=== PATIENT | female | born 1950 | race Caucasian/White ===

== ENCOUNTER 2016-08-21 13:12 | Inpatient (IN) | payer BC, OTHER ==
[2016-08-21] VITALS (8 sets, daily range): BP systolic 104–131; BP diastolic 57–85; PULSE 90–142; TEMP 36.7–37.5; O2SAT 95–97; Ht 175.3 cm; Wt 73.2 kg
[~2016-08-21] VITALS: Ht 175.3 cm; Wt 73.2 kg
[2016-08-21] MEDS ORDERED: SODIUM CHLORIDE 0.9% 1000ML 1,000 ML IV SCH (13:56)
[2016-08-21] MEDS ORDERED: DILTIAZEM BOLUS / DRIP IV STA (13:56)
[2016-08-21] MEDS ORDERED: NITROGLYCERIN 0.4 MG SL PER TAB CHARGE SL PRN (14:00)
[2016-08-21] MEDS ORDERED: ACETAMINOPHEN 325 MG TAB PO PRN (14:00)
[2016-08-21] MEDS ORDERED: POLYETHYLENE (MIRALAX) 17 GM PACK PO PRN (14:00)
[2016-08-21] MEDS ORDERED: MAGNESIUM HYDROXIDE SUSP 30 ML UDC PO PRN (14:00)
[2016-08-21] MEDS ORDERED: ALUMINUM/MAGNESIUM/SIMETH (MAALOX MAX) 30 ML UDC PO PRN (14:00)
[2016-08-21] MEDS ORDERED: ONDANSETRON INJ 2 MG/ML 2 ML VIAL IV PRN (14:00)
[2016-08-21] MEDS ORDERED: MULT-506 PO (14:01)
[2016-08-21] MEDS ORDERED: CALC600T9 PO (14:01)
[2016-08-21] MEDS ORDERED: OMEG10007 PO (14:01)
[2016-08-21] MEDS ORDERED: EPP3/2 IM (14:01)
[2016-08-21] MEDS ORDERED: AZIT250T PO (14:01)
--- NOTE | 2016-08-21 14:57 | History and Physical ---
History & Physical Date & Time of Service: August 21, 2016 at 14:52 Chief Complaint: Afib With Rvr Primary Care Physician: Smith Lazaro M.D. History of Present Illness Source: patient Ms. Muhammad is a 66 y/o female with PMHx of Pneumonia (states she was being treated for legionella) with Empyema x 30 years ago who is a direct admission from PCPs office for new onset atrial fibrillation with RVR. She presented to the PCP as a follow-up today for worsening cough, chest congestion, and fatigue/ generalized weakness x 1 week. URI symptoms started as a sore throat, which is currently resolved, and nasal congestion. She was able to go about her normal routine, including yoga and water aerobics. She initially had a productive cough that is now largely unproductive. As the week progressed she felt that her chest became more congested. She has had intermittent fevers ranging from 99 -101 over this past week.Associated worsening fatigue, nausea, and poor appetite. She presented to the PCP's office on Wednesday and was started on Zithromax for her URI symptoms. She felt that she did not notice much improvement. Also notes her heart rate was reported as fast but no EKG obtained. She presented again to PCP office as symptoms continued to progress and due to the tachycardia and EKG was obtained that revealed A Fib. She denies palpitations, lightheadedness, SOB, or CP. She cannot recall noting frequent fast heart rates or palpitations in the past. She denies previous cardiac history but thinks she had a heart murmur as a child. She does not have a history of thyroid dysfunction. She does report poor oral intake and intermittent diarrhea. She reports taking a multivitamin and has been supplementing Gatorade to maintain electrolytes. Past Medical/Surgical History Denies a significant medical history Family History Hypertension Social History Smoking Status: Never Smoker Smokeless Tobacco Use: No Alcohol Use: socially Drug Use: none Multi-Drug Resistant Organisms History of MDRO: No Allergies Coded Allergies: Penicillins (Verified Allergy, Mild, Hives, 08/21/16) Home Medications Scheduled Azithromycin (Zithromax), 250 MG PO DAILY Calcium Carbonate-Vitamin D (Calcium + D), 1 PO QD Epinephrine (Epipen 2-Bean), 0.3 IM once Fish Oil ([place]-3), 2 CAP PO BID Multivitamin (Multivitamin), 1 TAB PO DAILY Review of Systems Constitutional: + fatigue, + fever (past week - resolved currently), + weakness (generalized), No chills, No sweats Eyes: No worsening of vision ENT: + nasal symptoms, + sore throat ("scratchy" resolved), No trouble swallowing Respiratory: + cough, + sputum (initially productive now non-productive), No dyspnea on exertion, No shortness of breath Cardiovascular: No chest pain, No palpitations Abdomen: + diarrhea (intermittent), + nausea, No GI bleeding, No pain, No vomiting Musculoskeletal: No calf pain, No swelling Genitourinary - Female: No dysuria Neurologic: No vertigo Hematologic / Lymphatic: No abnormal bleeding/bruising, No clotting problems Integumentary: No rash Physical Exam General Appearance: WD/WN, no apparent distress, + pertinent finding (mild tremor of head) Head: normocephalic, atraumatic Eyes: sclerae normal ENT: hearing grossly normal Neck: supple, no JVD, trachea midline Respiratory/Chest: normal breath sounds, no respiratory distress, no accessory muscle use, + crackles (minimal crackles R base) Cardiovascular: no gallop, no murmur, + tachycardia, + irregularly irregular Abdomen/GI: normal bowel sounds, non tender, soft Back: normal inspection, no CVA tenderness Extremities/Musculoskelatal: no calf tenderness, no pedal edema Neurologic/Psych: no motor/sensory deficits, alert, oriented x 3 Skin: normal color, warm/dry Diagnostics Laboratory Results Results Past 24 Hours Test 08/21/16 13:56 08/21/16 14:46 Range/Units Impression Assessment and Plan Ms. Muhammad is a 66 y/o female with PMHx of Pneumonia (states she was being treated for legionella) with Empyema x 30 years ago who is a direct admission from PCPs office for new onset atrial fibrillation with RVR. New Onset Atrial Fibrillation with RVR: CHADSVASC 2 - Unsure how long she may have been in A Fib...may possibly be approx. 72 hrs? - Cardizem bolus/gtt - initiated 5 mg bolus as BP 120s/80s then gtt with titration - NSS 100 mL/hr - await labs and replete electrolytes as necessary -- Check electrolytes, TSH, serial cardiac enzymes - Therapeutic Lovenox 1 mg/kg - Echo - Consult Cardiology - recommendations appreciated - rate control medications and anticoagulation URI Symptoms: Viral/Bacterial Sinusitis vs Pneumonia: - Imaging (CXR) and labs remain pending - evidence of leukocystosis a R base crackles - Hold Zithromax (took 2 days) - Start Rocephin 1 g IV daily DVT Prophylaxis: Therapeutic Lovenox Code Status: FULL RESUSCITATION Disposition: Pending rate control..possible rhythm conversion -- If plan for NOAC will need co-pay addressed Pt seen/examined and orders , H&P reviewed in conjunction with PA Presented to her MD with URI symptoms and was noted to be tachycardic - subsequently diagnosed with new AF and sent to the hospital as a direct admit. The pt denies CP or significant SOB Her CXR is more consistent with a degree of vascular congestion than with pneumonia or bronchitis although emphysematous changes are also described OE AAO x 3 S1,2 R CTAB NT, ND No CCE P: Treat for AF - rate control with Cardizem, Lovenox, echo - cardio consulted If her resp symptoms do not resolve with treatment of her AF would consider diuresis or treating for pulmonary etiology Level of Care Telemetry Resuscitation Status FULL RESUSCITATION VTE Prophylaxis VTE Risk Assessment Done? Y/N: Yes Risk Level: Moderate Given or contraindicated: Enoxaparin (Lovenox)SQ, T.E.D. Stockings, SCD's
[2016-08-21] MEDS ORDERED: CEFTRIAXONE SOD INJ 1 GM in DEXTROSE 5% ADD-VANTAGE 50ML 50 ML IV SCH (15:00)
[2016-08-21] MEDS ORDERED: DILTIAZEM HCL INJ 125 MG in DEXTROSE 5% 100ML IV PRN (15:00)
[2016-08-21] MEDS ORDERED: DILTIAZEM HCL 5 MG/ML 5 ML VIAL IV SCH (15:00)
[2016-08-21 15:23] LABS: BASO % 0.2 %; BASO ABS # 0.03 K/uL (0-0.2); COMPLETE YES; EOS % 0.7 %; HEMATOCRIT 42.4 % (37-47); IG% 0.3 %; LYMPH % 10.3 %; LYMPH ABS # 1.53 K/uL (1.2-3.4); MEAN CELL VOLUME 87.8 fL (80-100); MEAN CORPUSCULAR HEMOGLOBIN 29.6 pg (25-34); MEAN CORPUSCULAR HGB CONC 33.7 g/dl (32-36); MEAN PLATELET VOLUME 9.5 fL (7.4-10.4); MONO % 8.2 %; NEUT % 80.3 %; PLATELET COUNT 288 K/uL (130-400); RED BLOOD COUNT 4.83 M/uL (4.2-5.4)
[2016-08-21] MEDS ORDERED: PATIENT'S HEIGHT AND/OR WEIGHT NEEDED SCH (15:30)
[2016-08-21 15:37] LABS: INR 1.1 (0.9-1.1); PROTHROMBIN TIME (PATIENT) 11.9 SECONDS (9.0-12.0)
[2016-08-21 15:55] LABS: URINE APPEARANCE CLEAR (CLEAR); URINE BILIRUBIN NEG (NEG); URINE COLOR YELLOW; URINE NITRITE NEG (NEG); URINE PH 8.5 (4.5-7.5); URINE SPECIFIC GRAVITY 1.011 (1.000-1.030); UROBILINOGEN NEG (NEG); ZZUR CULT IF INDIC CLEAN CATCH NO
[2016-08-21 15:56] LABS: CALCIUM 8.8 mg/dl (8.5-10.1); CKMB/CK RATIO 0.4 (0-3.0)
[2016-08-21 15:57] LABS: MANUAL MICROSCOPIC REQUIRED? NO; REVIEW REQ? NO
[2016-08-21 15:59] LABS: BUN/CREATININE RATIO 20.5 (10-20); CREATININE 0.58 mg/dl (0.60-1.20); MAGNESIUM 2.4 mg/dl (1.8-2.4)
[2016-08-21 16:09] LABS: ALB/GLOB RATIO 0.7 (0.9-2); PHOSPHORUS 2.5 mg/dl (2.5-4.9); THYROID STIMULATING HORMONE 1.07 uIu/ml (0.300-4.500)
--- NOTE | 2016-08-21 17:01 | DIAGNOSTIC IMAGING REPORT ---
CHEST 2 VIEWS ROUTINE CLINICAL HISTORY: Atrial Fibrillation cardiac arrhythmia COMPARISON STUDY: No previous studies for comparison. FINDINGS: Mild emphysematous change. Mild interstitial prominence bilaterally. No evidence for cardiac enlargement. Diaphragms smooth. Slight blunting of the lateral costophrenic angles bilaterally. IMPRESSION: Emphysematous change. Pulmonary vascular congestion versus mild congestive failure Electronically signed by: Dagoberto Bajwa M.D. 08/21/2016 4:59 PM Dictated Date/Time: 08/21/2016 4:59 PM
--- NOTE | 2016-08-21 18:09 | CARDIOLOGY CONSULTATION ---
DATE OF CONSULTATION: 08/21/2016 REFERRING PHYSICIAN: Dr. Teddy Rubio. CHIEF COMPLAINT: Atrial fibrillation. HISTORY OF PRESENT ILLNESS: Mrs. Tatum Muhammad is a 66-year-old woman without any cardiac history who has been experiencing constitutional symptoms of fevers, anorexia, weakness and a nonproductive cough. The patient also has an element of nausea, but no significant vomiting. These symptoms have been present for approximately 3 days. She denies significant associated dyspnea. She states that when lying down she has a cough that is nonproductive and seems to improve with sitting upright. She states that her had similar syndrome prior to her. She did track her tachycardia picture at home and recorded 101.5. She proceeded to her primary care physician's office approximately 3 days ago where she was prescribed an antibiotic and asked to follow up today. Today, she had some mild improvement in her symptoms as well as noted to have an elevated heart rate and sent to the Emergency Room for evaluation. There, she was discovered to have atrial fibrillation and a rapid ventricular rate. The patient denies symptoms of chest discomfort. She does not report any history of chest pain or exertional chest discomfort. She is not aware of any palpitations or tachycardia. She denies significant dizziness or lightheadedness. She has not suffered recent syncopal episode. 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 She states she has intermittent high blood pressures but is not currently on treatment for hypertension. PAST SURGICAL HISTORY: Includes the aforementioned right thoracotomy for empyema, tonsillectomy, and left elbow surgery. OUTPATIENT MEDICATIONS: The patient takes only supplements. No prescribed medications. MEDICAL ALLERGIES: INCLUDE PENICILLIN. FAMILY HISTORY: No history of premature coronary disease or atrial fibrillation. SOCIAL HISTORY: The patient is retired from the university. She is a lifelong nonsmoker and denies significant alcohol abuse. REVIEW OF SYSTEMS: A complete 10-system review of systems was performed and the pertinent positives are noted in the history of present illness, the remainder being negative. She states she does have some mild diarrhea. She does not report any swelling in her lower extremities. She does not report any recent rashes. PHYSICAL EXAMINATION: GENERAL: The patient was alert and oriented, mood and affect appeared normal. She answered all questions appropriately. CURRENT VITAL SIGNS: Include blood pressure 125/85 with a pulse of 135. HEENT AND NECK: Her sclerae are anicteric. Her pupils are equal, reactive to light and accommodation. Extraocular movements were intact. Palpation of submandibular region did not reveal any significant lymphadenopathy. The carotids are palpable bilaterally. There are no bruits on auscultation. I did not appreciate any jugular venous distention. Thyroid is not enlarged. LUNGS: Auscultation of both lung farrar reveal crackles in some decreased breath sounds in the right base, but the left appeared clear. There are no expiratory wheezes. She had normal respiratory effort without use of accessory muscles. HEART: Evaluation revealed her to be in a rapid rhythm that was irregular. S1, S2 appear to be normal. I did not appreciate any murmurs on examination. The PMI was not markedly displaced on palpation. Evaluation of lower extremities did not reveal any significant peripheral edema. ABDOMEN: Soft and nontender. EXTREMITIES: Evaluation of both wrists revealed radial pulses that were equal in intensity. There was no evidence of cyanosis or clubbing. LABORATORY AND IMAGING STUDIES: Obtained since admission include white cell count 14.9, hemoglobin of 14, and a platelet count of 288. Sodium is 137, potassium is 4.0. Creatinine was 0.58, BUN was 12. Cardiac troponin was less than detectable limit. TSH was normal at 1.0. The patient had a 12-lead EKG obtained at the time of admission which revealed her to be in atrial flutter with a rapid ventricular response. There were no acute ST or T-wave changes. There was evidence of an incomplete right bundle branch block. Chest x-ray is pending. ASSESSMENT AND PLAN: Atrial flutter with rapid ventricular response: The patient has no cardiac history. She has a remote history of pulmonary infection and a pulmonary process. It is very likely that she has a pulmonary process currently and that her arrhythmia was triggered by her acute illness. She has no symptoms related to the arrhythmia. She is hemodynamically stable. At this point, it would seem reasonable to attempt a rate control strategy with diltiazem infusion as ordered. I suspect that as her clinical condition improves and suspected infection is treated, we may see resolution of the arrhythmia or at least improved rate control. The duration of the arrhythmia is also unknown, but likely associated with acute illness and present for several days. She has been started on systemic anticoagulation and this will need to be continued in the outpatient setting given her CHADS2-VASc score of 2. Oral anticoagulant can be chosen by the patient, NOAC versus warfarin either would be acceptable. We will await results of the echocardiogram in order to determine if there are any structural abnormalities, which makes explain the arrhythmia or need evaluation but her examination is otherwise unremarkable.
[2016-08-21] MEDS: ENOXAPARIN 80 MG/0.8 ML SYR SQ SCH (19:22)
[2016-08-21] MEDS ORDERED: ENOXAPARIN 1 MG/KG SQ SCH (21:00)
[2016-08-21 21:51] LABS: CKMB/CK RATIO 0.4 (0-3.0)
[2016-08-21] MEDS ORDERED: NURSING VERBAL MED ORDER ONE (23:45)
[2016-08-22] VITALS: O2SAT 98
[2016-08-22] MEDS: HYDROCODONE/HOMATROPINE SYRUP 5MG/1.5MG 5ML UDP PO PRN ×2 (00:13→08:43)
[2016-08-22 03:04] LABS: BASO % 0.4 %; BASO ABS # 0.05 K/uL (0-0.2); COMPLETE YES; EOS % 2.7 %; HEMATOCRIT 39.3 % (37-47); IG% 0.2 %; LYMPH % 20.4 %; LYMPH ABS # 2.79 K/uL (1.2-3.4); MEAN CELL VOLUME 88.7 fL (80-100); MEAN CORPUSCULAR HEMOGLOBIN 29.8 pg (25-34); MEAN CORPUSCULAR HGB CONC 33.6 g/dl (32-36); MEAN PLATELET VOLUME 9.2 fL (7.4-10.4); MONO % 9.3 %; PLATELET COUNT 270 K/uL (130-400); RED BLOOD COUNT 4.43 M/uL (4.2-5.4)
[2016-08-22 03:24] VITALS: BP 122/74; PULSE 84; TEMP 37.2; O2SAT 97
[2016-08-22 03:28] LABS: BLOOD UREA NITROGEN 11 mg/dl (7-18); BUN/CREATININE RATIO 17.9 (10-20); CARBON DIOXIDE 31 mmol/L (21-32); CHLORIDE 105 mmol/L (98-107); CREATININE 0.64 mg/dl (0.60-1.20); GLUCOSE 103 mg/dl (70-99); MAGNESIUM 2.4 mg/dl (1.8-2.4); POTASSIUM 4.4 mmol/L (3.5-5.1); SODIUM 143 mmol/L (136-145)
[2016-08-22 03:33] LABS: CKMB/CK RATIO 0.3 (0-3.0)
[2016-08-22 04:00] VITALS: O2SAT 98
[2016-08-22] MEDS: ENOXAPARIN 80 MG/0.8 ML SYR SQ SCH (05:45)
[2016-08-22 07:40] VITALS: BP 123/72; PULSE 87; TEMP 36.6; O2SAT 95
--- NOTE | 2016-08-22 09:00 | Cardiology Follow-Up ---
Subjective Date of Service: August 22, 2016. Pt evaluation today including: conversation w/ patient, physical exam, lab review, review of studies, review of inpatient medication list History of Present Illness The very pleasant 66-year-old woman who presented with a pulmonary infection as well as atrial fibrillation, she was not specifically aware of the atrial fibrillation but was observed to have a rapid heart rate (in the range of 120-140 but while she was febrile). That converted during the night to sinus rhythm. She had been on intravenous Cardizem following admission, she was not aware of the conversion. Anticoagulation is with Lovenox 1 mg/kg twice a day. This morning she feels quite well other than having a persistent cough. She is not aware of her rhythm but wasn't when she came in. She has no cardiac arrest or complaints. Social History Smoking Status: Never Smoker History of Alcohol Use: Yes (rarely a glass of wine) Review of Systems Respiratory: + cough, + see HPI Cardiac: No chest pain, No palpitations Objective Vital Signs Past 12 Hours Date Time Temp Pulse Resp B/P Pulse Ox O2 Delivery O2 Flow Rate FiO2 08/22/16 07:40 36.6 87 18 123/72 95 Room Air 08/22/16 04:00 98 Room Air 08/22/16 03:24 37.2 84 21 122/74 97 Room Air 08/22/16 00:00 98 Room Air 08/21/16 23:24 37.0 106 17 128/77 97 Room Air Last Recorded Weight-Kilograms: 73.200 Intake & Output 8-Hour Column 08/21/16 08/21/16 08/22/16 15:59 23:59 07:59 Intake Total 1125 ml 323 ml Output Total 450 ml 100 ml Balance 675 ml 223 ml 24-Hour Column 08/22/16 07:59 Intake Total 1448 ml Output Total 550 ml Balance 898 ml Physical Exam Constitutional: Level of Distress: mild distress Lungs: Auscultation: rhonchi Cardiovascular: Heart Auscultation: RRR, no murmurs Extremities: no edema Data Laboratory Results: Last 24 Hours Test 08/21/16 15:10 08/21/16 15:42 08/21/16 21:05 08/22/16 02:59 White Blood Count 14.90 K/uL 13.70 K/uL Red Blood Count 4.83 M/uL 4.43 M/uL Hemoglobin 14.3 g/dL 13.2 g/dL Hematocrit 42.4 % 39.3 % Mean Corpuscular Volume 87.8 fL 88.7 fL Mean Corpuscular Hemoglobin 29.6 pg 29.8 pg Mean Corpuscular Hemoglobin Concent 33.7 g/dl 33.6 g/dl Platelet Count 288 K/uL 270 K/uL Mean Platelet Volume 9.5 fL 9.2 fL Neutrophils (%) (Auto) 80.3 % 67.0 % Lymphocytes (%) (Auto) 10.3 % 20.4 % Monocytes (%) (Auto) 8.2 % 9.3 % Eosinophils (%) (Auto) 0.7 % 2.7 % Basophils (%) (Auto) 0.2 % 0.4 % Neutrophils # (Auto) 11.97 K/uL 9.19 K/uL Lymphocytes # (Auto) 1.53 K/uL 2.79 K/uL Monocytes # (Auto) 1.22 K/uL 1.27 K/uL Eosinophils # (Auto) 0.10 K/uL 0.37 K/uL Basophils # (Auto) 0.03 K/uL 0.05 K/uL RDW Standard Deviation 43.1 fL 44.4 fL RDW Coefficient of Variation 13.4 % 13.5 % Immature Granulocyte % (Auto) 0.3 % 0.2 % Immature Granulocyte # (Auto) 0.05 K/uL 0.03 K/uL Prothrombin Time 11.9 SECONDS Prothromb Time International Ratio 1.1 Activated Partial Thromboplast Time 25.1 SECONDS Partial Thromboplastin Ratio 1.0 Sodium Level 137 mmol/L 143 mmol/L Potassium Level 4.0 mmol/L 4.4 mmol/L Chloride Level 102 mmol/L 105 mmol/L Carbon Dioxide Level 28 mmol/L 31 mmol/L Anion Gap 7.0 mmol/L 7.0 mmol/L Blood Urea Nitrogen 12 mg/dl 11 mg/dl Creatinine 0.58 mg/dl 0.64 mg/dl Est Creatinine Clear Calc Drug Dose 97.1 ml/min 88.0 ml/min Estimated GFR () 109.8 106.3 Estimated GFR (Non- 94.7 91.7 BUN/Creatinine Ratio 20.5 17.9 Random Glucose 110 mg/dl 103 mg/dl Calcium Level 8.8 mg/dl 8.0 mg/dl Phosphorus Level 2.5 mg/dl Magnesium Level 2.4 mg/dl 2.4 mg/dl Total Bilirubin 0.4 mg/dl Aspartate Amino Transf (AST/SGOT) 26 U/L Alanine Aminotransferase (ALT/SGPT) 33 U/L Alkaline Phosphatase 96 U/L Total Creatine Kinase 313 U/L 268 U/L 234 U/L Creatine Kinase MB 1.1 ng/ml 1.0 ng/ml 0.8 ng/ml Creatine Kinase MB Ratio 0.4 0.4 0.3 Troponin I < 0.015 ng/ml < 0.015 ng/ml < 0.015 ng/ml Total Protein 7.2 gm/dl Albumin 3.0 gm/dl Globulin 4.2 gm/dl Albumin/Globulin Ratio 0.7 Thyroid Stimulating Hormone (TSH) 1.070 uIu/ml Hepatitis C Antibody Screen NEG Urine Color YELLOW Urine Appearance CLEAR Urine pH 8.5 Urine Specific [place] 1.011 Urine Protein NEG Urine Glucose (UA) NEG Urine Ketones 1+ Urine Occult Blood NEG Urine Nitrite NEG Urine Bilirubin NEG Urine Urobilinogen NEG Urine Leukocyte Esterase SMALL Urine WBC (Auto) 1-5 /hpf Urine RBC (Auto) 0-4 /hpf Urine Hyaline Casts (Auto) 0 /lpf Urine Epithelial Cells (Auto) 10-20 /lpf Urine Bacteria (Auto) NEG Imaging: Echocardiography was done and pending review EKG: On admission atrial fibrillation with a heart rate of 135 bpm, subsequently controlled Telemetry reviewed: Atrial fibrillation on admission with good heart rate control on Cardizem, subsequent conversion to sinus rhythm on the evening of with a controlled heart rate subsequently. Assessment and Plan #1. Atrial fibrillation: Relatively asymptomatic on admission, she was feeling weak and "sick", but she also presented with a fever and respiratory illness. It is difficult to sort out. She was not aware of palpitations so the duration of the arrhythmia is unknown, she was feeling well 5 days prior to admission and went for a walk, etc. and she believes it is unlikely she had an abnormal rhythm at that time but we don't know for sure. She was not aware of the onset of palpitations. She is not aware of the termination during the night, but her heart rate had been controlled on intravenous diltiazem. It is likely therefore that the arrhythmia is less than 5 days in duration, but we can't pinpoint it closer than that. It may be related to the pulmonary condition but is also possible that she has asymptomatic atrial fibrillation since she is minimally symptomatic. I think it would be safer to use long-term anticoagulation. I would recommend Eliquis 5 mg twice a day. I did talk to her about warfarin versus the newer agent and she would prefer the newer agents and I believe they' re safer in that would be my preference as well. As far as rate control and not sure would do anything, it may be beneficial for us to know if she has recurrence and she does not need medications for anything else and she did not have a dangerously fast heart rate. I am going to discontinue her intravenous diltiazem now since she is in sinus rhythm. We will arrange follow-up for her in the office, from the standpoint atrial fibrillation she can go home but told her that her hospitalization would depend on her pulmonary status. Thank you for allowing me to participate in her care.
[2016-08-22 11:00] VITALS: O2SAT 95
--- NOTE | 2016-08-22 11:03 | DIAGNOSTIC IMAGING REPORT ---
CHEST 2 VIEWS ROUTINE CLINICAL HISTORY: F/U PN pneumonia COMPARISON STUDY: 08/21/2016 FINDINGS: Emphysematous change. Lungs are considered clear. Slight chronic blunting right lateral costophrenic angle. IMPRESSION: Emphysematous change. No acute process. Electronically signed by: Dagoberto Bajwa M.D. 08/22/2016 11:01 AM Dictated Date/Time: 08/22/2016 11:00 AM
[2016-08-22] MEDS ORDERED: ELQ25 PO (11:17)
[2016-08-22 11:42] VITALS: BP 123/72; PULSE 87; TEMP 36.6; O2SAT 95
--- NOTE | 2016-08-22 13:41 | Discharge Summary ---
Discharge Summary Date of Service August 22, 2016. Discharge Summary Admission Date: August 21, 2016 at 13:12 Discharge Date: August 22, 2016 Discharge Disposition: Home Principal Diagnosis: Afib with RVR Procedures: none Consultations: Cardiology Medication Reconciliation New Medications: Apixaban (Eliquis) 2.5 Mg Tab 5 MG PO BID for 30 Days, #60 TAB Continued Medications: Calcium Carbonate-Vitamin D (Calcium + D) 1 Tab Tab 1 PO QD Epinephrine (Epipen 2-Bean) 0.3 Mg Inj 0.3 IM once for ALLERGIC REACTION Fish Oil ([place]-3) 1 Ea Cap 2 CAP PO BID, CAP Multivitamin (Multivitamin) Tab 1 TAB PO DAILY, TAB Discontinued Medications: Azithromycin (Zithromax) 250 Mg Tab 250 MG PO DAILY, #4 TAB Referrals At Discharge Follow up Referrals: [facility] Referral - Within a Month with Ronald Ruth M.D. Family Practice Referral - Within 1 Week with Smith Lazaro M.D. Discharge Exam Pt is seen and examined by me. Pt denies Cp, SOB, dizziness, palpitation and LOC.Pt wants to go home. Pt denies fever, chills, rigors and sweats. Pt denies cough, and nasal congestion. Pt denies any palpitation over night, nurse does not report any acute events overnight. Review of Systems: Constitutional: No chills, No fever ENT: No nasal symptoms, No trouble swallowing Respiratory: No cough, No dyspnea at rest, No dyspnea on exertion, No hemoptysis, No shortness of breath, No sputum, No wheezing Cardiovascular: No chest pain, No orthopnea Abdomen: No diarrhea, No nausea, No vomiting Genitourinary - Male: No dysuria, No hematuria, No urinary frequency, No urinary urgency Psychiatric: No anxiety Endocrine: No fatigue Integumentary: No rash Physical Exam: General Appearance: no apparent distress Eyes: EOMI Neck: supple, no adenopathy Respiratory/Chest: chest non-tender, lungs clear, normal breath sounds, no respiratory distress, no accessory muscle use Cardiovascular: regular rate, rhythm, no edema, no gallop, no JVD, no murmur Abdomen / GI: normal bowel sounds, non tender, soft Extremities: normal inspection, no calf tenderness Neurologic/Psychiatric: alert, normal mood/affect, oriented x 3 Skin: no rash Hospital Course Ms. Muhammad is a 66 y/o female with PMHx of Pneumonia (states she was being treated for legionella) with Empyema x 30 years ago who is a direct admission from PCPs office for new onset atrial fibrillation with RVR. New Onset Atrial Fibrillation with RVR: CHADSVASC 2 - Unsure how long she may have been in A Fib...may possibly be approx. 72 hrs? - Cardizem bolus/gtt - initiated 5 mg bolus as BP 120s/80s then gtt with titration - DC Cardizem currently normal Sinus rhythm and stared anticoagulation. - Echo pending - Cardiology - recommendations appreciated - anticoagulation with eliquis 5mg po BID, follow with cardiology and primary as outpatient. URI Symptoms: Viral/Bacterial Sinusitis vs Pneumonia: - Evidence of leukocytosis a R base crackles - Hold Zithromax (took 2 days) - Rocephin was stopped , looks like URI. WBC trended downward. CXR unremarkable for infiltrates. Total Time Spent: Greater than 30 minutes This includes examination of the patient, discharge planning, medication reconciliation, and communication with other providers. Discharge Instructions Medications (Trade) Dose Ordered Sig/Riri Route Start Time Stop Time Status Last Admin Dose Admin Sodium Chloride 1,000 ml @ 100 mls/hr Q10H IV 08/21/16 13:56 08/21/16 18:39 DC 08/21/16 15:29 100 MLS/HR Ceftriaxone Sodium/Dextrose (Rocephin Inj/ Dextrose Add-[place] 50ML) 50 ml @ 100 mls/hr DAILY@1400 IV 08/21/16 15:00 08/21/16 18:40 DC 08/21/16 15:30 100 MLS/HR Diltiazem HCl 5 mg 5 mg TODAY@1500 IV 08/21/16 15:00 08/21/16 15:01 DC 08/21/16 15:36 5 MG Diltiazem HCl/ Dextrose (Cardizem Inj/D5 100ml) 125 ml @ 0 mls/hr Q0M PRN IV 08/21/16 15:00 08/22/16 08:35 DC 08/21/16 15:37 5 MLS/HR Enoxaparin Sodium (Lovenox Inj) 70 mg Q12H SQ 08/21/16 18:00 09/20/16 17:59 08/22/16 05:45 70 MG Hydrocodone Bit/ Homatropine Methylb (Hycodan Syrup) 5 ml Q4H PRN PO 08/21/16 23:45 09/04/16 23:44 08/22/16 08:43 5 ML Please refer to the electronic Patient Visit Report (Discharge Instructions) for additional information. Follow-Up Medications (Trade) Dose Ordered Sig/Riri Route Start Time Stop Time Status Last Admin Dose Admin Sodium Chloride 1,000 ml @ 100 mls/hr Q10H IV 08/21/16 13:56 08/21/16 18:39 DC 08/21/16 15:29 100 MLS/HR Ceftriaxone Sodium/Dextrose (Rocephin Inj/ Dextrose Add-[place] 50ML) 50 ml @ 100 mls/hr DAILY@1400 IV 08/21/16 15:00 08/21/16 18:40 DC 08/21/16 15:30 100 MLS/HR Diltiazem HCl 5 mg 5 mg TODAY@1500 IV 08/21/16 15:00 08/21/16 15:01 DC 08/21/16 15:36 5 MG Diltiazem HCl/ Dextrose (Cardizem Inj/D5 100ml) 125 ml @ 0 mls/hr Q0M PRN IV 08/21/16 15:00 08/22/16 08:35 DC 08/21/16 15:37 5 MLS/HR Enoxaparin Sodium (Lovenox Inj) 70 mg Q12H SQ 08/21/16 18:00 09/20/16 17:59 08/22/16 05:45 70 MG Hydrocodone Bit/ Homatropine Methylb (Hycodan Syrup) 5 ml Q4H PRN PO 08/21/16 23:45 09/04/16 23:44 08/22/16 08:43 5 ML Additional Copies To Smith Lazaro M.D.
--- NOTE | 2016-08-22 14:29 | ECHOCARDIOGRAM REPORT ---
*NOTICE TO RECEIVING DEMOCRAT AGENCY This information is strictly Confidential and protected under [place] law. [place] law prohibits you from making any further disclosure of this information unless further disclosure is expressly permitted by the written consent of the person to whom it pertains or is authorized by law. A general authorization for the release of medical or other information is not sufficient for this purpose. Hospital accepts no responsibility if the information is made available to any other person, INCLUDING THE PATIENT. Interpretation Summary * Name: LILIA SULLIVAN Study Date: 08/22/2016 06:51 AM BP: 122/74 mmHg * Patient Location: C.2T\S\S242\S\2 HR: 85 * : 1950 (M/d/yyy) Gender: Female Height: 69 in * Age: 66 yrs Ethnicity: CA Weight: 164 lb * Ordering Physician: Nan Dueñas * Referring Physician: Rakesh Sosa D.O. * Performed By: Shantel Del Toro RCS * * Reason For Study: A-FIB * BSA: 1.9 m2 * -- Conclusions -- * 1. Normal LV size and wall thickness. * 2. Normal LV systolic function. LVEF 60-65%. No regional wall motion abnormalities. * 3. Normal RV size and function. * 4. No significant valvular pathology. * 5. Atherosclerotic plaque involing abdominal aorta * 6. No prior studies for comparison. Procedure Details * A complete two-dimensional transthoracic echocardiogram was performed (2D, M-mode, Doppler and color flow Doppler). Left Ventricle * The left ventricle is grossly normal size. * There is borderline concentric left ventricular hypertrophy. * Ejection Fraction = 60-65%. * No regional wall motion abnormalities noted. Right Ventricle * The right ventricle is grossly normal size. * The right ventricular systolic function is normal as assessed by tricuspid annular plane systolic excursion (TAPSE) (normal >1.5 cm). Atria * Borderline left atrial enlargement. * Borderline right atrial enlargement. Mitral Valve * The mitral valve leaflets appear thickened, but open well. * There is no mitral valve stenosis. * There is no mitral regurgitation noted. Tricuspid Valve * The tricuspid valve is not well visualized, but is grossly normal. * There is no tricuspid stenosis. * There is trace tricuspid regurgitation. Aortic Valve * The aortic valve opens well. * The aortic valve is trileaflet. * No hemodynamically significant valvular aortic stenosis. * There is no significant aortic regurgitation. Pulmonic Valve * The pulmonary valve is inadequately visualized, but the Doppler data is adequate for interpretation. * There is no pulmonic valvular stenosis. * There is no pulmonic valvular regurgitation. Great Vessels * The aortic root and proximal ascending aorta are normal sized. * Atherosclerotic plaque involing abdominal aorta * No Doppler or imaging evidence of an aortic coarctation. Pericardium/Pleural * There is no pericardial effusion. * There is no pleural effusion. Great Vessels * Normal inferior vena cava size and collapsability with sniff indicates a normal right atrial pressure of 3 mmHg MMode 2D Measurements and Calculations IVSd 1.0 cm IVSs 1.3 cm LVIDd 4.2 cm LVIDs 3.0 cm LVPWd 1.2 cm LVPWs 1.1 cm IVS/LVPW 0.88 FS 29.5 % EDV(Teich) 79.1 ml ESV(Teich) 34.1 ml EF(Teich) 56.9 % EDV(cubed) 74.7 ml ESV(cubed) 26.2 ml EF(cubed) 65.0 % % IVS thick 31.7 % % LVPW thick -1.70 % LV mass(C)d 156.1 grams LV mass(C)dI 82.2 grams/m\S\2 LV mass(C)s 114.0 grams LV mass(C)sI 60.1 grams/m\S\2 SV(Teich) 45.0 ml SI(Teich) 23.7 ml/m\S\2 SV(cubed) 48.5 ml SI(cubed) 25.5 ml/m\S\2 Ao root diam 3.1 cm Ao root area 7.5 cm\S\2 LA dimension 3.8 cm LA/Ao 1.2 LVOT diam 1.9 cm LVOT area 2.8 cm\S\2 Doppler Measurements and Calculations MV E max jenifer 117.6 cm/sec MV A max jenifer 73.3 cm/sec MV E/A 1.6 MV P1/2t max jenifer 153.0 cm/sec MV P1/2t 65.2 msec MVA(P1/2t) 3.4 cm\S\2 MV dec slope 687.0 cm/sec\S\2 MV dec time 0.18 sec Ao V2 max 112.2 cm/sec Ao max PG 5.0 mmHg Ao max PG (full) 1.1 mmHg CORBIN(V,A) 2.5 cm\S\2 CORBIN(V,D) 2.5 cm\S\2 LV V1 max PG 3.9 mmHg LV V1 max 99.2 cm/sec TR max jenifer 282.9 cm/sec
[2016-08-22] MEDS ORDERED: APIXABAN 2.5 MG TAB PO SCH (21:00)
== END 2016-08-22 13:05 | disposition home or self-care (01) | DRG 310 ==
LOC: C.2T 13:12
PROVIDERS: ADMIT Internal Medicine; ATTEND Internal Medicine
DX: I48.0 Paroxysmal atrial fibrillation (principal); J01.90 Acute sinusitis, unspecified; Z79.899 Other long term (current) drug therapy; Z86.19 Personal history of other infectious and parasitic diseases

== ENCOUNTER 2016-09-03 08:55 | Emergency (ER) | payer BC, OTHER ==
[~2016-09-03] VITALS: Ht 175.3 cm; Wt 73.2 kg
[~2016-09-03 08:55] MED LIST: CALC600T9 PO; ELQ25 PO; EPP3/2 IM; MULT-506 PO; OMEG10007 PO
[2016-09-03 08:59] VITALS: TEMP 36.3; Ht 175.3 cm; Wt 73.2 kg
[2016-09-03] MEDS ORDERED: METOPROLOL TARTRATE 1 MG/ML VIAL IV STA (10:00)
--- NOTE | 2016-09-03 10:01 | EMERGENCY ROOM VISIT NOTE ---
History Report prepared by Adrienne: Darren Swenson Under the Supervision of: Dr. Mone Jenkins D.O. First contact with patient: 09:32 Chief Complaint: TACHYCARDIA Stated Complaint: RAPID HEART RATE,AFIB Nursing Triage Summary: pt reports she has hx of afib admitted august 21-. this am felt like heart rate was increased checked was elevated came to ed for eval. 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 Has been doing full activities. Last night something wasn't feeling right. Continues this morning. Denies dyspnea, nausesa, dizziness, chest pressure. History of Present Illness The patient is a 66 year old female who presents to the Emergency Room with complaints of a persistent rapid heart rate that started last night. She says that she had a really bad cold last month, with a sore throat, and cough. The patient says that she then got progressively worse, with fevers, nausea, and diarrhea, so she went to her primary care doctor, and was given a Z-pack. The doctor told the patient that she had a high heart rate, and was told to come back in 2 days. The patient came back in 2 days, and was told she was in atrial fibrillation, and was told to be evaluated here. She was admitted here overnight on August 21, and was seen by 2 cardiologists. The patient's atrial fibrillation was converted back to normal sinus quickly in the hospital, and was given Eliquis. The patient states that she has been taking Eliquis daily. However, she says that she still had a cough and diarrhea when leaving the hospital. The patient notes that the cold symptoms have been improving, but she still has a cough. She says that the diarrhea has mostly gone away this week. The patient notes that she saw her family doctor last week, and was cleared to do all usual activities, so the patient has been easing back into her normal exercises in life, and all had been going well, until she felt a fast heart last night. The patient states that she slept fine last night, and this morning she still felt the fast heart rate. She adds that she took cough syrup last night. She called her primary care office today, and was told to come here. The patient says that she has an appointment with cardiology scheduled in 2 weeks. She did have an echo recently, which revealed a normal heart. The patient denies any recent fevers, recent runny nose, chills, urinary symptoms, or leg swelling. She notes that she was diagnosed with emphysema/COPD from being around smokers. She personally has never smoked. Review of EMR showed TSH in normal range, normal LVEF of 60-65, normal systolic function, and no significant valvular pathology. Source of History: patient Onset: Last night Position: other (heart) Quality: other (rapid heart rate) Timing: other (persistent) Associated Symptoms: + cough, + diarrhea (getting better now), No fevers ( recent), No chills, No urinary symptoms Note: Associated symptoms: Denies recent runny nose, leg swelling. Review of Systems See HPI for pertinent positives & negatives. A total of 10 systems reviewed and were otherwise negative. Past Medical & Surgical Medical Problems: (1) Atrial fibrillation with RVR Family History Hypertension Social History Smoking Status: Never Smoker Drug Use: none Marital Status: Occupation Status: retired Current/Historical Medications Scheduled Apixaban (Eliquis), 5 MG PO BID Calcium Carbonate-Vitamin D (Calcium + D), 1 TAB PO QAM Epinephrine (Epipen 2-Bean), 0.3 IM once Fish Oil (Dana-3), 2 CAP PO BID Multivitamin (Multivitamin), 1 TAB PO DAILY Allergies Coded Allergies: Penicillins (Verified Allergy, Mild, Hives, 09/03/16) Physical Exam Vital Signs Date Time Temp Pulse Resp B/P (MAP) Pulse Ox O2 Delivery O2 Flow Rate FiO2 09/03/16 16:44 83 18 108/57 97 09/03/16 16:24 80 16 120/59 97 Room Air 09/03/16 15:49 81 16 119/63 97 Room Air 09/03/16 15:01 119/69 09/03/16 14:37 97 12 09/03/16 14:31 122/69 09/03/16 14:30 96 09/03/16 14:07 87 12 100 09/03/16 14:02 127/72 09/03/16 13:37 85 15 100 09/03/16 13:31 119/74 09/03/16 13:07 86 14 95 09/03/16 13:01 118/77 09/03/16 12:51 117/69 09/03/16 12:41 121/70 09/03/16 12:37 88 14 98 09/03/16 12:31 122/76 09/03/16 12:21 102 18 118/73 95 Room Air 09/03/16 12:07 106 8 99 09/03/16 12:01 118/73 09/03/16 11:37 90 6 98 09/03/16 11:32 123/79 09/03/16 11:25 91 96 09/03/16 11:01 144/93 09/03/16 10:55 97 97 09/03/16 10:32 119/71 09/03/16 10:25 92 99 09/03/16 10:21 91 09/03/16 10:16 118 137/87 09/03/16 10:15 137/87 09/03/16 10:01 131/76 09/03/16 09:55 129 17 94 09/03/16 09:31 138/81 09/03/16 09:08 116/93 09/03/16 09:06 100 Room Air 09/03/16 08:59 36.3 146 18 132/83 97 Physical Exam GENERAL: alert, well appearing, well nourished, no distress, non-toxic EYE EXAM: normal conjunctiva, PERRL and EOM's grossly intact OROPHARYNX: no exudate, no erythema, lips, buccal mucosa, and tongue normal and mucous membranes are moist NECK: supple, no nuchal rigidity, no adenopathy, non-tender LUNGS: Clear to auscultation. Normal chest wall mechanics HEART: Tachycardic and irregular, no murmurs, S1 normal and S2 normal ABDOMEN: abdomen soft, non-tender, normo-active bowel sounds, no masses, no rebound or guarding. BACK: Back is symmetrical on inspection and there is no deformity, no midline tenderness, no CVA tenderness. SKIN: no rashes and no bruising UPPER EXTREMITIES: upper extremities are grossly normal. LOWER EXTREMITIES: No pitting edema. NEURO EXAM: Normal sensorium, cranial nerves II-XII grossly intact, normal speech, no gross weakness of arms, no gross weakness of legs. No drift. Finger to nose intact. Gross sensation intact. Medical Decision & Procedures ER Provider Diagnostic Interpretation: X-ray results have been interpreted by the radiologist and reviewed by me. CHEST ONE VIEW PORTABLE CLINICAL HISTORY: Cough. Tachycardia. COMPARISON STUDY: Chest radiograph August 22, 2016. FINDINGS: Lung volumes are normal. There is no consolidation to suggest pneumonia. The left lung apex was not included. No consolidation is identified to suggest pneumonia. There is no pneumothorax or pleural effusion. Cardiac size is within normal limits. A nodular density projecting over left lower lung likely reflects a nipple shadow. IMPRESSION: No acute cardiopulmonary findings. Electronically signed by: Lázaro Crystal M.D. 09/03/2016 10:17 AM Dictated Date/Time: 09/03/2016 10:15 AM Laboratory Results 09/03/16 09:10 Red Blood Count 5.47, Mean Corpuscular Volume 89.8, Mean Corpuscular Hemoglobin 29.6, Mean Corpuscular Hemoglobin Concent 33.0, Mean Platelet Volume 10.0, Neutrophils (%) (Auto) 62.7, Lymphocytes (%) (Auto) 25.5, Monocytes (%) (Auto) 9.2, Eosinophils (%) (Auto) 1.8, Basophils (%) (Auto) 0.6, Neutrophils # (Auto) 5.81, Lymphocytes # (Auto) 2.36, Monocytes # (Auto) 0.85, Eosinophils # (Auto) 0.17, Basophils # (Auto) 0.06 09/03/16 09:10 Test 09/03/16 09:10 09/03/16 10:10 White Blood Count 9.27 K/uL (4.8-10.8) Red Blood Count 5.47 M/uL (4.2-5.4) Hemoglobin 16.2 g/dL (12.0-16.0) Hematocrit 49.1 % (37-47) Mean Corpuscular Volume 89.8 fL (80-100) Mean Corpuscular Hemoglobin 29.6 pg (25-34) Mean Corpuscular Hemoglobin Concent 33.0 g/dl (32-36) Platelet Count 415 K/uL (130-400) Mean Platelet Volume 10.0 fL (7.4-10.4) Neutrophils (%) (Auto) 62.7 % Lymphocytes (%) (Auto) 25.5 % Monocytes (%) (Auto) 9.2 % Eosinophils (%) (Auto) 1.8 % Basophils (%) (Auto) 0.6 % Neutrophils # (Auto) 5.81 K/uL (1.4-6.5) Lymphocytes # (Auto) 2.36 K/uL (1.2-3.4) Monocytes # (Auto) 0.85 K/uL (0.11-0.59) Eosinophils # (Auto) 0.17 K/uL (0-0.5) Basophils # (Auto) 0.06 K/uL (0-0.2) RDW Standard Deviation 45.7 fL (36.4-46.3) RDW Coefficient of Variation 13.9 % (11.5-14.5) Immature Granulocyte % (Auto) 0.2 % Immature Granulocyte # (Auto) 0.02 K/uL (0.00-0.02) Prothrombin Time 12.0 SECONDS (9.0-12.0) Prothromb Time International Ratio 1.1 (0.9-1.1) Anion Gap 5.0 mmol/L (3-11) Est Creatinine Clear Calc Drug Dose 71.3 ml/min Estimated GFR () 89.1 Estimated GFR (Non- 76.9 BUN/Creatinine Ratio 21.8 (10-20) Calcium Level 8.9 mg/dl (8.5-10.1) Total Bilirubin 0.6 mg/dl (0.2-1) Aspartate Amino Transf (AST/SGOT) 9 U/L (15-37) Alanine Aminotransferase (ALT/SGPT) 27 U/L (12-78) Alkaline Phosphatase 107 U/L (45-117) Troponin I < 0.015 ng/ml (0-0.045) Total Protein 8.0 gm/dl (6.4-8.2) Albumin 3.6 gm/dl (3.4-5.0) Globulin 4.4 gm/dl (2.5-4.0) Albumin/Globulin Ratio 0.8 (0.9-2) Lyme Disease IgG Antibody NEG (NEG) Lyme Disease IgM Antibody NEG (NEG) Urine Color DK YELLOW Urine Appearance CLEAR (CLEAR) Urine pH 6.0 (4.5-7.5) Urine Specific [place] 1.024 (1.000-1.030) Urine Protein NEG (NEG) Urine Glucose (UA) NEG (NEG) Urine Ketones TRACE (NEG) Urine Occult Blood NEG (NEG) Urine Nitrite NEG (NEG) Urine Bilirubin NEG (NEG) Urine Urobilinogen NEG (NEG) Urine Leukocyte Esterase TRACE (NEG) Urine WBC (Auto) 1-5 /hpf (0-5) Urine RBC (Auto) 0-4 /hpf (0-4) Urine Hyaline Casts (Auto) 1-5 /lpf (0-5) Urine Epithelial Cells (Auto) 5-10 /lpf (0-5) Urine Bacteria (Auto) NEG (NEG) Laboratory results per my review. Medications Administered Medications (Trade) Dose Ordered Sig/Riri Route Start Time Stop Time Status Last Admin Dose Admin Metoprolol Tartrate (Lopressor Iv) 5 mg ONE STAT IV 09/03/16 10:00 09/03/16 10:01 DC 09/03/16 10:16 5 MG Diltiazem HCl (Cardizem Inj) 10 mg TODAY@1200 IV 09/03/16 12:00 09/03/16 12:01 DC 09/03/16 12:19 10 MG Diltiazem HCl 125 mg/Dextrose 125 ml @ 5 mls/hr Q24H PRN IV 09/03/16 12:00 09/03/16 17:03 DC 09/03/16 12:19 5 MLS/HR Diltiazem HCl (Cardizem Cd Cap) 180 mg ONE STAT PO 09/03/16 14:21 09/03/16 14:22 DC 09/03/16 14:54 180 MG ECG Indication: tachycardia Rate (beats per minute): 122 Rhythm: atrial fibrillation Findings: no acute ischemic change, left axis deviation, other (normal QRS, QTC ) ED Course 0936: The patient was evaluated in room A11B. A complete history and physical exam was performed. 1000: Ordered Lopressor IV 5 mg IV. 1057: I reevaluated and updated the patient. Her heart rate is in the 90s, and feels mostly better. She is mostly sinus but has some breakthrough spurts of atrial fibrillation. 1146: Ordered Cardizem Bolus/Drip 1 ea IV. 1200: Ordered Cardizem Inj 10 mg IV. 1225: I reevaluated the patient and she feels well. She has no change in symptoms, and her rate is in the 90s but she is still in atrial fibrillation. 1413: I discussed the patient with Dr. Ruth - [facility] cardiology - he says to have the patient come to the office at 0900 tomorrow, and to give 1 dose of Cardizem Cd here to try to convert the patient over. 1421: Ordered Cardizem Cd Cap 180 mg PO. 1520: I reevaluated and updated the patient. 1550: Pt still rate controlled, cardizem drip weaned off. 1608: I reevaluated the patient and she is holding in sinus, feels okay, and good with the plan. The patient verbally expressed understanding and agreement of the treatment plan. The patient will be discharged. Medical Decision Prior records/ancillary studies reviewed. Triage Nursing notes reviewed. Differential diagnosis: Etiologies such as premature contractions, electrolyte abnormality, cardiac dysrhythmia, thyroid dysfunction, pulmonary embolism, infection, gastrointestinal, as well as others were entertained. Medication Reconciliation: I attest that I have personally reviewed the patient' s current medication list. Blood pressure screening: Patient was found to have normal blood pressure on screening and does not require follow-up. Patient well-appearing here, and all symptoms resolved once heart rate improved. Doubt PE given patient's compliance with anticoagulation, possible use of cough and cold medication last night caused recurrence of A. fib with RVR. Doubt tamponade, effusion, no evidence of bacteremia/sepsis. Patient monitored for several hours as she was hoping for a spontaneous conversion to normal sinus rhythm with medication alone has happened previously for her. As this did not happen, discussed with cardiology. They're agreeable with close outpatient follow-up and conversion from IV to oral medications here. Patient had longer and longer intervals of normal sinus rhythm while here and small intermittent episodes of A. fib yet. Patient had no other recurrence of any symptoms. Patient was comfortable with the plan, was aware of all results, discussed symptoms to watch and return for, she verbalized understanding. Consults Time Called: 1404 Consulting Physician: Dr. Flory MARTINEZ cardiology Returned Call: [phone] I discussed the patient with Dr. Flory MARTINEZ cardiology - he says to have the patient come to the office at 0900 tomorrow, and to give 1 dose of Cardizem here to try to convert the patient over. Impression Primary Impression: Atrial fibrillation with RVR Critical Care I have personally spent greater than 45 minutes of critical care time in the direct management of this patient. This includes bedside care, interpretation of diagnostic studies, and testing, discussion with consultants, patient, and family members, and other required patient management activities. This 45 minutes is in excess of all separately billable procedures. Involved system: Cardiac Scribe Attestation The scribe's documentation has been prepared under my direction and personally reviewed by me in its entirety. I confirm that the note above accurately reflects all work, treatment, procedures, and medical decision making performed by me. Departure Information Dispostion Home / Self-Care Referrals Smith Lazaro M.D. (PCP) Patient Instructions My [facility] Additional Instructions Please go to your game bird farmer's office at 9 AM tomorrow morning. You may otherwise eat and drink normally. Please avoid any other new medications including [id number] meds. If you have any recurrent episodes of habitations or racing heart, develop chest pain or pressure, trouble breathing, dizziness, or you have any other new or concerning symptoms, please return the emergency room.
[2016-09-03 10:14] LABS: BASO % 0.6 %; BASO ABS # 0.06 K/uL (0-0.2); COMPLETE YES; EOS % 1.8 %; HEMATOCRIT 49.1 % (37-47); IG% 0.2 %; LYMPH % 25.5 %; LYMPH ABS # 2.36 K/uL (1.2-3.4); MEAN CELL VOLUME 89.8 fL (80-100); MEAN CORPUSCULAR HEMOGLOBIN 29.6 pg (25-34); MONO % 9.2 %; NEUT % 62.7 %; PLATELET COUNT 415 K/uL (130-400); RED BLOOD COUNT 5.47 M/uL (4.2-5.4); WHITE BLOOD COUNT 9.27 K/uL (4.8-10.8)
[2016-09-03 10:18] LABS: INR 1.1 (0.9-1.1)
--- NOTE | 2016-09-03 10:18 | DIAGNOSTIC IMAGING REPORT ---
CHEST ONE VIEW PORTABLE CLINICAL HISTORY: Cough. Tachycardia. COMPARISON STUDY: Chest radiograph August 22, 2016. FINDINGS: Lung volumes are normal. There is no consolidation to suggest pneumonia. The left lung apex was not included. No consolidation is identified to suggest pneumonia. There is no pneumothorax or pleural effusion. Cardiac size is within normal limits. A nodular density projecting over left lower lung likely reflects a nipple shadow. IMPRESSION: No acute cardiopulmonary findings. Electronically signed by: Lázaro Crystal M.D. 09/03/2016 10:17 AM Dictated Date/Time: 09/03/2016 10:15 AM
[2016-09-03 10:21] LABS: ALT/SGPT 27 U/L (12-78); AST/SGOT 9 U/L (15-37); BLOOD UREA NITROGEN 17 mg/dl (7-18); BUN/CREATININE RATIO 21.8 (10-20); CALCIUM 8.9 mg/dl (8.5-10.1); CARBON DIOXIDE 32 mmol/L (21-32); CHLORIDE 107 mmol/L (98-107); CREATININE 0.79 mg/dl (0.60-1.20); GLUCOSE 95 mg/dl (70-99); POTASSIUM 3.8 mmol/L (3.5-5.1); SODIUM 144 mmol/L (136-145)
[2016-09-03 10:26] LABS: ALB/GLOB RATIO 0.8 (0.9-2); ALKALINE PHOSPHATASE 107 U/L (45-117)
[2016-09-03 10:36] LABS: URINE APPEARANCE CLEAR (CLEAR); URINE BILIRUBIN NEG (NEG); URINE COLOR DK YELLOW; URINE NITRITE NEG (NEG); URINE SPECIFIC GRAVITY 1.024 (1.000-1.030); UROBILINOGEN NEG (NEG); ZZUR CULT IF INDIC CLEAN CATCH NO
[2016-09-03 10:41] LABS: MANUAL MICROSCOPIC REQUIRED? NO; REVIEW REQ? NO
[2016-09-03 10:46] LABS: LYME DISEASE AB IGG NEG (NEG)
[2016-09-03 10:47] LABS: LYME DISEASE AB IGM NEG (NEG)
[2016-09-03] MEDS ORDERED: DILTIAZEM BOLUS / DRIP IV STA (11:46)
[2016-09-03] MEDS ORDERED: DILTIAZEM HCL INJ 125 MG in DEXTROSE 5% 100ML IV PRN (12:00)
[2016-09-03] MEDS ORDERED: DILTIAZEM HCL 5 MG/ML 5 ML VIAL IV SCH (12:00)
[2016-09-03] MEDS ORDERED: DILTIAZEM HCL 180 MG CAPCR PO STA (14:21)
[2016-09-03 16:44] VITALS: BP 108/57; PULSE 83; O2SAT 97
== END 2016-09-03 16:45 | disposition home or self-care (01) ==
LOC: C.EDB 08:56 → C.EDA 16:45
DX: I48.91 Unspecified atrial fibrillation (principal); Z79.899 Other long term (current) drug therapy; Z88.0 Allergy status to penicillin; Z82.49 Family history of ischemic heart disease and other diseases of the circulatory system

== ENCOUNTER → 2017-01-01 | Outpatient (CLI) | payer BC ==
--- NOTE | 2017-01-01 14:55 | MAMMOGRAPHY REPORT ---
BILATERAL DIGITAL SCREENING MAMMOGRAM WITH CAD: 01/01/2017 CLINICAL HISTORY: Routine screening. Patient has no complaints. TECHNIQUE: Current study was also evaluated with a Computer Aided Detection (CAD) system. Bilateral CC and MLO and right XCCL views were obtained. COMPARISON: Comparison is made to exams dated: 11/21/2015 mammogram, 10/30/2014 mammogram, 10/11/2013 ma mmogram, 09/19/2012 mammogram, 09/09/2011 mammogram, and 09/04/2010 mammogram - [facility] er. BREAST COMPOSITION: The tissue of both breasts is extremely dense, which lowers the sensitivity of m ammography. FINDINGS: No suspicious masses, calcifications, or areas of architectural distortion are noted in ei ther breast. There has been no significant interval change compared to prior exams. Bilateral benign -appearing calcifications are not significantly changed. IMPRESSION: ACR BI-RADS CATEGORY 2: BENIGN There is no mammographic evidence of malignancy. A 1 year screening mammogram is recommended. The pa tient will receive written notification of the results. Approximately 10% of breast cancers are not detected with mammography. A negative mammographic report should not delay biopsy if a clinically suggestive mass is present. Mar Doyle M.D. /:01/01/2017 12:05:58 Breading Machine Tender: Shantel JEONG(Shabnam)(Cristopher)([place]), [facility] letter sent: Normal 1/2 BI-RADS Code: ACR BI-RADS Category 2: Benign
== END | disposition home or self-care (01) ==
LOC: C.MAMM 08:53
PROVIDERS: ATTEND Family Medicine
DX: Z12.31 Encounter for screening mammogram for malignant neoplasm of breast (principal)

== ENCOUNTER 2023-12-30 07:12 | Inpatient (IN) ==
--- NOTE | 2023-12-02 10:54 | PAT Medication Instructions ---
Medication Instructions Date of Service December 02, 2023 Home Medications Medication Instructions Recorded propranolol 80 mg capsule,24 80 mg PO QAM #180 caps 03/18/23 hr,extended release dronedarone 400 mg tablet (Multaq) 400 mg PO BID #60 tabs 08/19/23 apixaban 5 mg tablet 5 mg PO BID #180 tabs 11/21/23 calcium carbonate 600 mg-vitamin D3 12.5 mcg (500 unit) capsule (Calcium 600 with Vitamin D3) 1 cap PO QAM multivitamin (Multiple Vitamins tablet) 1 tab PO QAM omega-3 fatty acids 1,000 mg capsule (Fish Oil Concentrate) 1,000 mg PO QAM propranolol 80 mg capsule,24 hr,extended release 80 mg PO QAM dronedarone 400 mg tablet (Multaq) 400 mg PO BID apixaban 5 mg tablet 5 mg PO BID ASK your prescriber and surgeon apixaban 5 mg tablet 5 mg PO BID (From anesthesia perspective, Apixaban/Eliquis needs to be stopped 72 hours/3 days before surgery. Please check if okay with doctor that prescribes this to you) DO NOT take the morning of surgery calcium carbonate 600 mg-vitamin D3 12.5 mcg (500 unit) capsule (Calcium 600 with Vitamin D3) 1 cap PO QAM multivitamin (Multiple Vitamins tablet) 1 tab PO QAM dronedarone 400 mg tablet (Multaq) 400 mg PO BID Take morning of surgery With a small sip of water, OTHERWISE NOTHING TO EAT OR DRINK AFTER MIDNIGHT: propranolol 80 mg capsule,24 hr,extended release 80 mg PO QAM Take evening before surgery dronedarone 400 mg tablet (Multaq) 400 mg PO BID Other Notes If you have any questions please call us at [phone] or [phone] or [phone] or [phone]
--- NOTE | 2023-12-09 08:37 | Anesthesiology Consultation ---
Date of Service December 09, 2023 Assessment & Plan (1) Encounter for pre-operative examination: - Infectious disease screening: Per assessment on 12/09/23: No known recent infectious disease contacts or current infectious disease symptoms. - Outpatient joint assessment: Pt currently scheduled for inpatient pathway. If surgeon requests review for outpatient joint pathway, patient is not recommended candidate for outpatient joint program from anesthesia standpoint based on available information. - Eliquis instructions: patient made aware that for neuraxial anesthesia, Eliquis needs to be held 72 hours prior to surgery. Patient voiced understanding/will check if okay with prescriber. - Patient acceptable risk for surgery pending surgeon-ordered PCP (appt 12/12) and cardiology ([facility], appt 12/22) preop evaluations. Chart Review Chart Review: Patient seen in Pre Admission Testing Teaching & Discussion Pre-Anesthesia Teaching/Discussion Notes: Instructed NPO after midnight before surgery,except medications with 15 cc of water. Medication instructions provided according to the PAT guidelines. History Surgery Operation Date: 12/30/23 09:10 Proposed Procedures p Right Total Hip Arthroplasty - Steven Ortega MD Height/Weight Height: 5 ft 9.5 in Weight: 77.1 kg Allergies Allergy/AdvReac Type Severity Reaction Status Date / Time Penicillins Allergy Mild Hives Verified 12/02/23 08:55 tramadol AdvReac Unknown Patient Verified 12/03/23 15:05 requests avoiding d/t adverse reactions listed Medications Home Medications Medication Instructions Recorded Confirmed Last Taken calcium carbonate 600 mg-vitamin 1 cap PO QAM 12/20/18 12/02/23 06/01/20 D3 12.5 mcg (500 unit) capsule (Calcium 600 with Vitamin D3) multivitamin (Multiple Vitamins 1 tab PO QAM 12/20/18 12/02/23 05/31/20 tablet) omega-3 fatty acids 1,000 mg 1,000 mg PO QAM 12/20/18 12/02/23 06/01/20 capsule (Fish Oil Concentrate) propranolol 80 mg capsule,24 80 mg PO QAM #180 caps 03/18/23 12/02/23 Unknown hr,extended release dronedarone 400 mg tablet (Multaq) 400 mg PO BID #60 tabs 08/19/23 12/02/23 Unknown apixaban 5 mg tablet 5 mg PO BID #180 tabs 11/21/23 12/02/23 Unknown Past Medical History Medical History A-fib Taking Eliquis, propranolol, multaq Follows with Dr. Ruth Asthma "Extremely mild" No medications needed Atrial flutter Hearing deficit History of pneumonia "Massive" age 37, had all symptoms of Legionarre's disease (and dx with) but it never showed up in her testing Hypertension Osteoarthritis Restless leg Noted on sleep study (which did not show evidence of KALEB) Scoliosis Tremor Controlled with propranolol Exercise / Class Metabolic Activity II 4-5 Yardwork/Stairs/Walk up hill (one FS: No CP, no SOB) Past Family History Family History Sister Family hx colonic polyps Mother FHx: melanoma Mother FHx: colon cancer, Onset Age: 100 Grandfather (Maternal) FHx: pancreatic cancer Father FHx: prostate cancer Brother FHx: prostate cancer Grandmother (Maternal) FHx: breast cancer Aunt FHx: breast cancer Other Glioblastoma No family history of adverse response to anesthesia Past Surgical History Surgical History History of cardioversion 07/2023 History of colonoscopy History of open reduction and internal fixation (ORIF) procedure left elbow (hardware removed) History of removal of cyst B/L breasts, benign History of sigmoidoscopy History of thoracentesis (1986) r/t "massive" pneumonia at [facility] History of tonsillectomy History of wisdom tooth extraction Past Anesthesia History No Hx of Anesthesia Complications and No Family Hx of Anesthesia Complications History of PONV No Hx of PONV and No Hx of Motion Sickness Social History Smoking Status: Never smoker Do You Dip or Chew Tobacco: No Hx Alcohol Use: Yes Alcohol type: wine alcohol intake frequency: other Hx Substance Use: No substance use type: does not use Review of Systems Patient denies chest pain, shortness of breath, dyspnea on exertion, fever, chills, cough, wheezing, palpitations. Physical Exam Vital Signs BP 135/56 P 54 TEMP 97.9 SP02 98%RA RESP 18 Physical Full cervical extension range of motion. Full TMJ range of motion. TMD > 3.5 finger breaths Mallampati Score I Dentition: missing molars, Several crowns Lungs: clear throughout to auscultation Cardiac: regular rate and rhythm, no murmurs noted Spine: normal Carotid arteries: negative bruit Extremities: no LE edema Lab Results Anesthesia Preop Results Results Anesthesia Widget: WBC 5.97 K/ul (4.8-10.8) 12/09/23 Hgb 14.6 g/dl (12.0-16.0) 12/09/23 Hct 45.2 % (37.0-47.0) 12/09/23 Plt 213 K/uL (130-400) 12/09/23 Na 140 mmol/L (136-145) 12/09/23 K 4.3 mmol/L (3.5-5.1) 12/09/23 Cl 103 mmol/L (98-107) 12/09/23 CO2 31 mmol/L (21-32) 12/09/23 BUN 17 mg/dl (6-23) 12/09/23 Creat 0.82 mg/dl (0.6-1.2) 12/09/23 Glucose Level 75 mg/dl (70-99(Fasting)) 12/09/23 PT 11.7 Seconds (9.0-12.0) 12/09/23 PTT 28 Seconds (21-31) 12/09/23 INR 1.1 (0.9-1.1) 12/09/23 Urine Color Yellow 12/09/23 Urine Appearance Clear (Clear) 12/09/23 Urine pH 6.0 (4.5-7.5) 12/09/23 Urine Specific [place] 1.020 (1.000-1.030) 12/09/23 Urine Protein Negative (Negative) 12/09/23 Urine Glucose (UA) Negative (Negative) 12/09/23 Urine Ketones Negative (Negative) 12/09/23 Urine Blood Trace-intact (Negative) H 12/09/23 Urine Nitrite Negative (Negative) 12/09/23 Urine Bilirubin Negative (Negative) 12/09/23 Urine Urobilinogen Negative (Negative) 12/09/23 Urine Leukocyte Esterase 1+ (Negative) H 12/09/23 Blood Type A Positive 12/09/23 Antibody Screen NEGATIVE 12/09/23 Testing Electrocardiogram Date: 08/19/23 A flutter 2:1 AV conduction. 71bpm. LAD. Pulmonary disease pattern. NS IVCD. Minimal voltage criteria for LVH, may be normal variant ([place] product).
[~2023-12-30 07:12] MED LIST changes: +BUPIVACAINE 0.5 % 5 MG/1 ML PF 10ML VIAL ONE; -CALC600T9 PO; -ELQ25 PO; -EPP3/2 IM; -MULT-506 PO; -OMEG10007 PO
[2023-12-30] MEDS: CeleBREX 200 MG CAP PO SCH (07:39)
[2023-12-30] MEDS: ACETAMINOPHEN 500 MG TAB PO SCH ×2 (07:39→13:27)
[2023-12-30] MEDS: LR 60ML/HR IV SCH (07:40)
[2023-12-30] MEDS: FAMOTIDINE 20 MG TAB PO SCH (07:40)
[2023-12-30] MEDS: Scopolamine 1 MG TDSY TD SCH (07:40)
[2023-12-30] MEDS: dexAMETHasone**PF** 10 MG/ML VIAL IV SCH (07:40)
[2023-12-30] MEDS: LR 500ML BOLUS, THEN 15ML/HR IV SCH (07:50)
[2023-12-30] MEDS ORDERED: PROPOFOL IV EMULSION 10 MG/ML 20 ML VIAL IV ONE (07:59)
[2023-12-30] MEDS ORDERED: fentaNYL citrate PF 100 MCG/2 ML VIAL ONE (08:00)
[2023-12-30] MEDS ORDERED: MIDAZOLAM HCL 1 MG/ML 2ML VIAL ONE (08:00)
[2023-12-30] MEDS: traMADol HCL 50 MG TABLET PO SCH (08:05)
--- NOTE | 2023-12-30 08:31 | History & Physical Bridge Note ---
Date of Service December 30, 2023 History & Physical Bridge Note I have examined the patient, reviewed the History & Physical and in the interval since the performance of the History & Physical I have noted the following changes of clinical significance: no changes noted
[2023-12-30] MEDS: TRANEXAMIC ACID 1,000 MG **IV Pre-op IV SCH (08:37)
[2023-12-30] MEDS: ceFAZolin 2000MG 2,000 MG/15 ML SYR IV SCH ×2 (09:10→17:45)
[2023-12-30] MEDS: ROPIV 0.5% 246mg, Ketorolac 30mg, EPINEPHrine 0.5mg in NSS INFIL SCH (09:30)
[2023-12-30] MEDS: ORTHO JOINT ANESTHETIC ONE (09:30)
[2023-12-30] MEDS: TRANEXAMIC ACID 1,000 MG **IV Intra-op IV SCH (10:06)
--- NOTE | 2023-12-30 10:47 | Operative Report ---
Post Operative Report Pre & Post Diagnosis Operation Date: 12/30/23 09:10 Pre-Op Diagnosis: Right Hip Osteoporosis Post-Op Diagnosis: Right Hip Osteoporosis I identified the patient and participated in the time-out.: Yes Procedure Operation Date: 12/30/23 09:10 Actual Procedures p Right Total Hip Arthroplasty(Right) - Steven Ortega MD Surgeon Steven Ortega MD Food Clerk MILAGRO Hobson PA-C. No resident or fellow was available to assist. Estimated Blood Loss 100 Findings Consistent with Post-Op Diagnosis Specimens Right femoral head Anesthesia Type Spinal MAC Complications none Disposition Disposition: Recovery Room Indications 73-year-old female with right hip osteoarthritis refractory to conservative management. X-rays demonstrate [id number] arthritis and subchondral sclerosis. I had a long discussion with her about the risks and benefits of surgery, alternatives to surgery, and expected outcomes. After reviewing all these she elected to proceed with surgery. All questions were answered. Informed consent was signed. Description of Procedure Patient was identified in the preoperative holding area where the surgical site, right hip, was marked. A spinal anesthetic was placed, then the patient was brought back to the main operating room, placed in the operating table and moved into the lateral decubitus position. Axillary roll was placed. All bony p rominences were padded. Perioperative antibiotics and tranexamic acid 1 gram IV were administered. The operative extremity was prepped and draped in the normal sterile fashion. Prior to incision a multidisciplinary timeout was called. All in the room were in agreement. We began by making an incision for a posterior approach to the hip. We dissected down through subcutaneous tissues to the level of the fascia. The fascia was incised in line with the incision. Charnley bow was placed. Fatty tissue was reflected posteriorly off the back of the greater trochanter to expose the piriformis and short external rotators of the hip. Quadratus femoris was taken off the femur subperiosteally. The piriformis and short external rotators were dissected off the posterior aspect of the hip. A box cut was made in the capsule. Inferior hip capsule was released off the femur. The femoral head was dislocated. The femoral neck cut was made at our preoperative template. The acetabulum was then exposed. The labrum was sharply excised. Contents of the cotyloid fossa were removed with electrocautery. We then began reaming at a size 8 mm less than our preoperative template. We reamed up by 1 [address] the way up to a size 54 mm cup. This gave us good bleeding cancellus bone circumferentially. The acetabulum was then irrigated out and dried. The real Hartwick Gription cup was then impacted down into position with 45 degrees of lateral opening and 25 degrees of anteversion. Two cancellous bone screws were placed up into the ilium. Excellent fixation was obtained. A trial liner for a 36 mm femoral head was then placed. Next we turned our attention to the femur. The lateral neck was removed with a box osteotome. Intramedullary guide was used to establish the intramedullary canal. We then broached all the way up to a size 5. We began trialing with a standard offset neck and a +5 head. Hip was reduced. Leg lengths were symmetric. The hip was stable in extension and external rotation, and stable in the sleeper position. At 90 degrees of hip flexion the hip could be internally rotated 70 degrees before levering out of the cup. I was very happy with the stability exam. Therefore the hip was dislocated and the femoral trial was removed. The acetabulum was re-exposed, and the trial liner was removed. New [place] hole eliminator screw was placed. An Altrx polyethylene liner for a 36 mm femoral head was then impacted into the shell. The locking mechanism was checked to ensure that it had engaged which it had. The femur was re-exposed. The femoral canal was irrigated and dried. The real Actis femoral stem was opened up. This was impacted down into position. The femoral head was opened up and gently impacted down onto the trunnion. The hip was atraumatically reduced. Another 1 gram of IV tranexamic acid was started prior to closure. The wound was irrigated out with sterile Betadine solution. The periarticular injection cocktail was then placed. The short external rotators, piriformis, and posterior capsule were repaired through drill holes in the greater trochanter using #2 Vicryl. The fascia was run with a looped #1 PDS. The subcutaneous layer was closed with #1 PDS. The dermal layer was closed with 2-0 Vicryl. Zip line was used for the skin followed by a Silverlon dressing. A compressive dressing was then placed. The patient was then rolled supine. Leg lengths were rechecked and were symmetric. An abduction pillow was placed. Sedation was lifted and the patient was transferred to the recovery room in stable condition. Summary of implants: Depuy Hartwick Gription Acetabular Shell Sector Cup, 54 mm outer diameter 2 Hartwick Cancellous bone screws, 6.5 x 40 and 6.5 x 20 mm New [place] hole eliminator Hartwick Altrx Polyethylene Acetabular Liner, Neutral, with a 36 mm inner diameter DePuy Actis collared cementless Femoral stem, 12/14 taper, size 5 standard offset 36 mm ceramic femoral head with +5 offset Postoperative course: Patient will be admitted overnight from the recovery room. Patient will be weightbearing as tolerated with posterior hip precautions. Aspirin for DVT prophylaxis I attest to the content of the Intraoperative Record and any orders documented therein. Any exceptions are noted below.
[2023-12-30] MEDS ORDERED: ONDANSETRON INJ 2 MG/ML 2 ML VIAL IV PRN (10:52)
[2023-12-30] MEDS ORDERED: MAGNESIUM HYDROXIDE SUSP 30 ML UDC PO PRN (10:52)
[2023-12-30] MEDS ORDERED: bisacodyL 10 MG SUPP PR PRN (10:52)
[2023-12-30] MEDS ORDERED: NALOXONE HCL 0.4 MG/1 ML VIAL/CARP IV PRN (10:52)
[2023-12-30] MEDS ORDERED: METOCLOPRAMIDE HCL INJ 5 MG/ML 2 ML VIAL IV PRN (10:52)
--- NOTE | 2023-12-30 10:52 | Operative Report ---
Post Operative Report Pre & Post Diagnosis Operation Date: 12/30/23 09:10 Pre-Op Diagnosis: Right Hip Osteoporosis Post-Op Diagnosis: Right Hip Osteoporosis I identified the patient and participated in the time-out.: Yes Procedure Operation Date: 12/30/23 09:10 Actual Procedures p Right Total Hip Arthroplasty(Right) - Steven Ortega MD Surgeon Steven Ortega Md Equipment Associate MILAGRO Hobson PA-C. No resident or fellow was available to assist. Estimated Blood Loss 100 Findings Consistent with Post-Op Diagnosis Specimens femoral head Description of Procedure I was present during the entire procedure assisting with positioning, prepping, draping, wound retraction, wound closure, dressing and abduction pillow placement. No fellow present. Please see Dr. Ortega procedure note for specifics of the case. I attest to the content of the Intraoperative Record and any orders documented therein. Any exceptions are noted below.
[2023-12-30] MEDS ORDERED: diphenhydrAMINE 50 MG/ML VIAL IV PRN (10:53)
[2023-12-30] MEDS ORDERED: ALUMINUM/MAGNESIUM SUSP 30 ML UDC PO PRN (10:53)
[2023-12-30] MEDS ORDERED: HYDROmorphone INJ 0.5 MG/0.5 ML SYR IV PRN (10:53)
--- NOTE | 2023-12-30 11:27 | XRay Report ---
XR pelvis 1-2V routine CLINICAL HISTORY: Postoperative evaluation. COMPARISON: Pelvis radiograph December 13, 2023. FINDINGS: Alignment of the total right hip arthroplasty is anatomic. There is no periprosthetic frac ture or unexpected radiopaque foreign body. Calcifications projecting over the right hemipelvis are c hronic. IMPRESSION: Expected findings following total right hip arthroplasty. ACT 112: Negative or not required by law. Electronically signed by: Lázaro Crystal M.D. 12/30/2023 11:26 AM
--- NOTE | 2023-12-30 12:51 | Anesthesiology Progress Note ---
Date of Service December 30, 2023 Anesthesia Post Procedure Vital Signs Vital Signs: Temp Pulse Pulse Resp BP Pulse Ox O2 Del Method 12/30/23 12:30 56 L 19 120/64 97 Room Air 12/30/23 12:15 55 L 12 130/71 99 Room Air 12/30/23 12:00 47 L 12 120/61 99 Room Air 12/30/23 11:45 51 L 12 132/66 98 Room Air 12/30/23 11:40 36.4 C L 50 L 14 126/63 98 Room Air 12/30/23 11:31 36.5 C 51 L 12 162/60 H 100 Room Air 12/30/23 11:20 50 L 13 142/62 H 98 Room Air 12/30/23 11:10 50 L 17 145/64 H 99 Room Air 12/30/23 11:00 52 L 13 142/66 H 100 Room Air 12/30/23 10:52 36.4 C L 51 L 14 136/67 100 Room Air 12/30/23 07:34 36.5 C 70 20 155/68 H 98 Room Air Notes Mental Status: alert / awake / arousable Patient Amnestic to Procedure: Yes Nausea / Vomiting: adequately controlled Pain: adequately controlled Airway Patency, RR, SpO2: stable & adequate BP & HR: stable & adequate Hydration State: stable & adequate Neuraxial Anesthesia: was administered and sensory block is resolving Anesthetic Complications: no major complications apparent
[2023-12-30] MEDS: SODIUM CHLORIDE 0.9% 1,000 ML IV SCH (13:26)
[2023-12-30] MEDS: KETOROLAC TROMETHAMINE 15 MG/ML VIAL IV SCH (13:26)
[2023-12-30] MEDS: oxyCODONE HCL IR 5 MG TAB (IMMEDIATE RELEASE) PO PRN (17:40)
[2023-12-30] MEDS: DRONEDARONE HCL 400 MG TAB PO SCH (17:41)
[2023-12-30] MEDS: Scopolamine CHECK PATCH PLACEMENT SCH (17:42)
[2023-12-30] MEDS ORDERED: Nursing to Pharmacy Communication SCH (17:45)
[2023-12-30] MEDS: SENNA 8.6 MG TAB PO SCH (21:00)
[2023-12-30] MEDS ORDERED: CeleBREX 200 MG CAP PO SCH (21:00)
[2023-12-30] MEDS: DOCUSATE SODIUM 100 MG CAP PO SCH (21:00)
[2023-12-31] MEDS: CALCIUM 600MG + VIT D 400 IU TAB PO SCH (08:03)
[2023-12-31] MEDS: CeleBREX 200 MG CAP PO SCH (08:03)
[2023-12-31] MEDS: dexAMETHasone 4 MG TAB PO SCH (08:03)
[2023-12-31] MEDS: APIXABAN 5 MG TABLET PO SCH (08:04)
[2023-12-31] MEDS: OMEGA-3 (PURIFIED FISH OIL) 1 GM CAP PO SCH (08:04)
[2023-12-31] MEDS: MULTIVITAMIN TAB PO SCH (08:04)
[2023-12-31] MEDS: PROPRANOLOL HCL LA 80 MG CAPCR PO SCH (08:04)
[2023-12-31 08:13] VITALS: BP 123/61; RESP 19; TEMP 98.4; O2SAT 100
[2023-12-31 08:27] LABS: Basophils # (auto) 0.03 K/uL (0.00-0.20); Basophils % (auto) 0.2 %; Eosinophils # (auto) 0.01 K/uL (0.00-0.50); Eosinophils % (auto) 0.1 %; Immature Granulocytes % (auto) 0.6 %; Lymphocytes # (auto) 1.79 K/uL (1.20-3.40); Lymphocytes % (auto) 11.1 %; Mean Corpuscular Hemoglobin 29.1 pg (25.0-34.0); Mean Corpuscular Hgb Conc 32.5 g/dL (32.0-36.0); Mean Corpuscular Volume 89.7 fL (80.0-100.0); Monocytes # (auto) 1.87 K/uL (0.11-0.59); Monocytes % (auto) 11.6 %; Neutrophils % (auto) 76.4 %; Platelet Count 214 K/uL (130-400); RDW Coefficient of Variation 13.6 % (11.5-14.5); RDW Standard Deviation 44.4 fL (36.4-46.3); Red Blood Count 4.46 M/uL (4.20-5.40)
[2023-12-31 09:57] LABS: BUN Creatinine Ratio 26.7 (10-20); Creatinine Clr Calc Pharmacy 60.1 ml/min; Est GFR (African American) 76.6 ml/min; Est GFR (Non-African American) 66.1 ml/min; Potassium 4.5 mmol/L (3.5-5.1)
--- NOTE | 2023-12-31 10:41 | Orthopedic Progress Note ---
Date of Service December 31, 2023 Assessment & Plan (1) S/P total hip arthroplasty: Plan: Total hip precautions reviewed Weightbearing as tolerated with walker assistance PT/OT Keep Silverlon dressing in place Abduction pillow use x 6 weeks DVT prophylaxis with Eliquis and JEREMY stockings Pain controlled p.o. medication Ice with easy wrap Plan is to discharge home today with in-home physical therapy for the first 2 weeks Follow-up with [facility] orthoped[facility] previously scheduled With questions contact our clinic at [phone] Admission and Anticipated Discharge Date Admission Date: December 30, 2023 Subjective This 73-year-old female is day 1 status post right total hip arthroplasty. Patient states she is doing very well. She is dressed and ready to go home. She states that she has completed PT and OT and is scheduled to begin in-home physical therapy tomorrow. Currently she denies chest pain, shortness of breath, fever, chills, sweats, nausea, vomiting, diarrhea, difficulty voiding or numbness or tingling in her right lower extremity. Review of Systems Review of Systems: All systems reviewed & are unremarkable except as noted in Subjective Physical Exam Physical Exam: Right hip: Outer dressing was removed. Silverlon is clean dry and intact left in place. Patient is able to easily perform an active straight leg raise test. She is able to actively dorsi and plantarflex her foot without issue. Her quad strength is 4 out of 5. She has no discomfort with logroll testing or central testing. She has no discomfort with light passive hip flexion near 90 degrees or with passive external rotation. She does feel some slight pulling with light passive internal rotation. Patient is neurovascularly intact and able to easily transition from a seated to standing position with the assistance of her walker. Results & Data Vital Signs (Past 12 Hours) Vital Signs Temp Pulse Pulse Resp BP Pulse Ox O2 Del Method 12/31/23 08:12 36.9 C 63 19 123/61 100 Room Air 12/31/23 05:00 36.3 C L 70 16 125/62 98 Room Air 12/31/23 01:13 36.6 C 57 L 16 129/58 L 100 Room Air Diagnostic Findings Laboratory Results WBC 16.10 K/ul (4.8-10.8) H 12/31/23 07:47 RBC 4.46 M/uL (4.20-5.40) 12/31/23 07:47 Hgb 13.0 g/dl (12.0-16.0) 12/31/23 07:47 Hct 40.0 % (37.0-47.0) 12/31/23 07:47 MCV 89.7 fL (80.0-100.0) 12/31/23 07:47 MCH 29.1 pg (25.0-34.0) 12/31/23 07:47 MCHC 32.5 g/dL (32.0-36.0) 12/31/23 07:47 RDW Std Deviation 44.4 fL (36.4-46.3) 12/31/23 07:47 RDW Coeff of Suad 13.6 % (11.5-14.5) 12/31/23 07:47 Plt Count 214 K/uL (130-400) 12/31/23 07:47 MPV 10.0 fL (9.4-12.4) 12/31/23 07:47 Immature Gran % (Auto) 0.6 % 12/31/23 07:47 Neut % (Auto) 76.4 % 12/31/23 07:47 Lymph % (Auto) 11.1 % 12/31/23 07:47 Granite % (Auto) 11.6 % 12/31/23 07:47 Eos % (Auto) 0.1 % 12/31/23 07:47 Baso % (Auto) 0.2 % 12/31/23 07:47 Neut # (Auto) 12.30 K/uL (1.40-6.50) H 12/31/23 07:47 Lymph # (Auto) 1.79 K/uL (1.20-3.40) 12/31/23 07:47 Granite # (Auto) 1.87 K/uL (0.11-0.59) H 12/31/23 07:47 Eos # (Auto) 0.01 K/uL (0.00-0.50) 12/31/23 07:47 Baso # (Auto) 0.03 K/uL (0.00-0.20) 12/31/23 07:47 Immature Gran # (Auto) 0.10 K/uL (0.01-0.20) 12/31/23 07:47 Sodium 137 mmol/L (136-145) 12/31/23 07:47 Potassium 4.5 mmol/L (3.5-5.1) 12/31/23 07:47 Chloride 104 mmol/L (98-107) 12/31/23 07:47 Carbon Dioxide 26 mmol/L (21-32) 12/31/23 07:47 Anion Gap 7 (3-11) 12/31/23 07:47 BUN 23 mg/dl (6-23) 12/31/23 07:47 Creatinine 0.86 mg/dl (0.6-1.2) 12/31/23 07:47 Est Cr Clr Drug Dosing 60.1 ml/min 12/31/23 07:47 Est GFR ( Amer) 76.6 ml/min 12/31/23 07:47 Est GFR (Non-Af Amer) 66.1 ml/min 12/31/23 07:47 BUN/Creatinine Ratio 26.7 (10-20) H 12/31/23 07:47 Glucose 107 mg/dl (70-99(Fasting)) H 12/31/23 07:47 Calcium 9.0 mg/dl (8.6-10.3) 12/31/23 07:47 Impressions Pelvis X-Ray 12/30/23 10:53 XR pelvis 1-2V routine CLINICAL HISTORY: Postoperative evaluation. COMPARISON: Pelvis radiograph December 13, 2023. FINDINGS: Alignment of the total right hip arthroplasty is anatomic. There is no periprosthetic fracture or unexpected radiopaque foreign body. Calcifications projecting over the right hemipelvis are chronic. IMPRESSION: Expected findings following total right hip arthroplasty. ACT 112: Negative or not required by law. Electronically signed by: Lázaro Crystal M.D. 12/30/2023 11:26 AM
[2023-12-31 11:45] VITALS: PULSE 70
--- NOTE | 2023-12-31 11:54 | Discharge Summary ---
Date of Service December 31, 2023 Admission HPI Per Admitting Provider Patient is a 73-year-old female here today for preoperative history and physical for right total hip arthroplasty with Dr. Ortega. Her right hip bothered her between 5-10 years ago. She cannot recall any injury that caused the pain. She used Ibuprofen and her pain disappeared for a couple years ago. She started having pain again more than 3 years ago. She takes Eliquis for atrial fibrillation and atrial flutter. She describes her pain as worse in the winter and best in the summer. She does water aerobics, line dancing, and some weight lifting. She also did PT with no relief and has a history of osteopetrosis. She desires to be able to walk more. Admission Exam Per Admitting Provider Physical Exam Vitals & Measurements T: 36.4 C RR: 20 BP: 118/82 SpO2: 96% HT: 176.0 cm WT: 77.2 kg WT: 77.200 kg (Dosing) BMI: 24.92 General: Pt is well nourished, seated on the exam table AA&O, in NAD, calm and cooperative during exam HENT: Nontraumatic, no gross deformity, hearing and vision grossly in-tact, PERRL Heart: +S1, +S2, RRR, no murmurs appreciated Lungs: CTABL, no wheezing appreciated Focusing on the patient's right lower extremity: Sensation intact to light touch L3 to S1 dermatomes ROM: Flexion 90/ Abduction 25 with discomfort/ External rotation 35/ Internal rotation 0 - Log roll - Tenderness over trochanteric bursa + VIKASH test, knee 20 in off table Equivocal Stinchfield test Makes a C sign Palpable DP and PT pulses Principal Diagnosis Right hip osteoarthritis Discharge Exam Right hip: Outer dressing was removed. Silverlon is clean dry and intact left in place. Patient is able to easily perform an active straight leg raise test. She is able to actively dorsi and plantarflex her foot without issue. Her quad strength is 4 out of 5. She has no discomfort with logroll testing or central testing. She has no discomfort with light passive hip flexion near 90 degrees or with passive external rotation. She does feel some slight pulling with light passive internal rotation. Patient is neurovascularly intact and able to easily transition from a seated to standing position with the assistance of her walker. Discharge Data Allergies Allergy/AdvReac Type Severity Reaction Status Date / Time Penicillins Allergy Mild Hives Verified 12/30/23 07:43 tramadol AdvReac Unknown Patient Verified 12/30/23 07:43 requests avoiding d/t adverse reactions listed Procedures Performed Operation Date: 12/30/23 09:10 Actual Procedures p Right Total Hip Arthroplasty(Right) - Steven Ortega MD Hospital Course (1) S/P total hip arthroplasty: Patient had an uneventful overnight stay following a right total hip arthroplasty. She is very pleased with the results of the surgery. She states that her pain is well-managed with p.o. pain medication. She is anxious to be discharged home. She states she is already established with in-home physical therapy and is just scheduled to begin tomorrow. Total hip precautions reviewed Weightbearing as tolerated with walker assistance PT/OT Keep Silverlon dressing in place Abduction pillow use x 6 weeks DVT prophylaxis with Eliquis and JEREMY stockings Pain controlled p.o. medication Ice with easy wrap Plan is to discharge home today with in-home physical therapy for the first 2 weeks Follow-up with [facility] orthopedics previously scheduled With questions contact our clinic at [phone] Total Time Total Time Spent Total Time Spent (In Minutes): 25 mins Discharge Plan Discharge Items Patient Disposition: Home - Home Health Services Reason For Visit: Right Hip Osteoporosis Discharge Diagnosis: Right hip osteoarthritis Activity: As commented below Lifting: None Bathing: Keep incision dry Bathing Comment: may shower tomorrow Sexual Activity: Wait until after follow-up appointment Exercise/Sports: Wait until after follow-up appointment Driving/Machine Use: No driving until cleared by practice support specialist Weightbearing: Right weightbearing Weightbearing Comment: as tolerated with walker assistance Non-emergency contact: Surgeon Call non-emergency contact if: you have any medication questions, your pain is not controlled, your temperature is above 101.5, your wound has increased drainage and your wound pain has increased Follow-up/Referrals: Abhinav Castellano MD [Primary Care Provider] - Diet: Regular Addtl Attending Provider Instructions: Post-operative Instructions Dear Patient and Family/Friends, Before you are discharged from the hospital, it is important to know what to expect when you get home after surgery. To that end, we have created this sheet of discharge instructions which covers many commonly asked questions. Make sure you go through this sheet in its entirety with your nurse before you are discharged. Please note that we will go over the specifics of your surgery and recovery when you return for your first post-operative visit. Sincerely, Dr. Ortega Medications 1. Oxycodone 5 mg tablet: Take 1-2 tabs every 4-6 hours as needed for postoperative pain control. A prescription for this will be sent to your pharmacy. 2. Diclofenac sodium 75 mg tablet: Take 1 tablet twice daily for the first 30 days postoperatively for pain and inflammation relief. This will also be sent to your pharmacy with 1 refill. 3. Eliquis 5 mg tablet: Take your regular dosage of this medication for blood clot prevention. 4. Extra strength Tylenol 500 mg tablet: Take 2 tablets every 6-8 hours as needed for additional pain relief. Please purchase this medication. Pain Expect to be in a fair amount of pain after surgery. Remember, our goal is not to eliminate your pain, but to make it tolerable. It is a good idea to stay ahead of your pain by taking the medications you were prescribed once you get home. Typically, the pain starts improving 3-7 days after surgery. You should start weaning off the narcotic pain medication (oxycodone, hydrocodone, hydromorphone, morphine) as soon as your pain improves. Please call our office if your pain is not adequately controlled. Ice Ice your operative site at least 5 times a day for 15-30 minutes at a time. Make sure you have a thin cloth between the ice or cooling unit and your skin to prevent prince bite. This is especially important if you received a nerve block. Continue icing your operative site for the first 5-7 days after surgery, then as needed. Diet/Nausea/Vomiting Start by drinking clear liquids and eating crackers. If you can tolerate this, then you may resume your normal diet. If you feel nauseated or vomit, take Zofran/ondansetron (if prescribed). Please call our office if you have intractable nausea or vomiting, or, if after hours, you may go to the Emergency Room for help. Constipation Constipation is a common side effect of narcotic pain medication. If you have not had a bowel movement within 2 days after surgery, we recommend purchasing an over the counter laxative such as Milk of Magnesia, Dulcolax, or Miralax from a local pharmacy, and taking it as instructed. Call our clinic if any questions. Nerve block The anesthesia team sometimes places a nerve block to help with post-operative pain control. This results in significant numbness and inability to move the extremity. The nerve block usually wears off in 8-12 hours, but sometimes can last up to 24 hours. Please call our office if you are still unable to move your extremity after 24 hours, unless you received a pain pump to take home. Nerve blocks typically wear off quickly, so start taking pain medication as soon as you start feeling soreness near your surgical site. Weight bearing and Range of Motion. Do not bear any weight through your operative extremity immediately after surgery. If you had upper extremity surgery, do not lift anything with that arm. If you are in a knee brace, keep it locked in place until your follow-up. We will discuss your weight bearing, range of motion, and lifting restrictions in detail at your first post-operative appointment. Continuous Passive Motion (CPM) Machine If you were prescribed a CPM machine, it will start after your first post- operative appointment, at which time we will give you instructions on the range of motion settings and duration of treatment Physical therapy You will be given a prescription for physical therapy or occupational therapy at your first post-operative appointment. Typically, patients start therapy within 1 week of surgery Wound care and showering We will inspect your wound at your first post-operative visit, and may do a dressing change at that time. Most patients will be in a water-proof dressing that is removed 14 days after surgery. It is normal to see some dried blood on the dressing. Do not remove your dressing, paper strips or sutures yourself unless you are given permission. Showering is allowed the day after surgery. Do not scrub or remove any dressings. The wound should not be submerged underwater (i.e. in a bathtub or pool) until 4 weeks after surgery JEREMY stockings If you were given white stockings, these are to be worn at all times except to shower (on both legs) for the first 2 weeks after surgery. Driving You may not drive while taking narcotic pain medication or while in a cast, splint, sling or brace. You, the patient, need to make the final determination about when you are safe to drive, however, the earliest you may consider driving after surgery is below: Hand/Wrist/Elbow Surgery: 3 days Shoulder Surgery: 2 weeks Hip,/Knee/Ankle Surgery: 4 weeks Fracture repair: 6 weeks Return to Work Your return to work depends on what surgery was done and what type of work you do. Please bring any paperwork your employer needs completed to your first post-operative visit. Also, bring a description of your job duties, as this helps us to understand what risks you may face at work. Travel Avoid long distance travel (greater than 1 hour) in airplanes and cars for the first 6 weeks after surgery. If you must travel, you need to have a Doppler ultrasound done before you travel to rule out a blood clot in your legs. Follow-up You should have a follow-up appointment already scheduled 1-2 days after surgery. If not, please contact our office to make this appointment before you leave the hospital. When to call the office It is normal to have swelling and bruising in the limb that was operated on. This will improve with time. It is also normal to have fevers for the first 2 days after surgery. Reasons you should call your doctor include: Uncontrolled pain; Nausea, vomiting, or constipation that does not improve with medication; Fevers over 101.5, chills, sweats; Drainage or bleeding from the wound; Foul odor; Spreading areas of redness; Any other concerns Pending Studies at Discharge: No Stand-Alone Forms: [facility] Medications and DC Order Prescriptions: New acetaminophen [Tylenol Extra Strength] 500 mg Tablet 1,000 mg PO Q8 30 Days Qty: 180 0RF oxycodone 5 mg Tablet 5 - 10 mg PO Q4H MDD Ongoing Tx; Max 6/day PRN (Reason: Post op pain control) Qty: 28 0RF diclofenac sodium 75 mg tablet,delayed release (DR/EC) 75 mg PO BID 30 Days Qty: 60 1RF Continued apixaban 5 mg tablet 5 mg PO BID Qty: 180 3RF propranolol 80 mg capsule,extended release 24hr 80 mg PO QAM Qty: 180 3RF omega-3 fatty acids [Fish Oil Concentrate] 1,000 mg capsule 1,000 mg PO QAM multivitamin [Multiple Vitamins] tablet 1 tab PO QAM calcium carbonate-vitamin D3 [Calcium 600 with Vitamin D3] 600 mg(1,500mg) - 500 unit capsule 1 cap PO QAM Multaq 400 mg tablet 400 mg PO BID Qty: 60 2RF Rx Instructions: must administer with a meal/food Discharge Orders: Discharge Order (Routine); Ordered 12/31/23 Ordered By: Sg Baig/Other Patient Handouts: Hip Precautions, Total Hip Replacement, Hip Total Replacement Dc Admission Data Admit Date/Time: 12/30/23 10:53 Attending Provider: Steven Ortega Admit Provider: Steven Ortega Primary Care Provider: Abhinav Castellano Other Providers: [facility],Home Healthcare Other Interventions: Discharge Summary Assessment (RN) Last Done: 12/31/23 11:43
== END 2023-12-31 12:22 | disposition home health service (06) | DRG 470 ==
LOC: ASU 07:12 → 3W 10:53